=== PATIENT | female | born 1940 ===

== ENCOUNTER 2022-09-04 08:59 | Outpatient (CLI) | payer OTHER ==
[~2022-09-04 08:59] MED LIST: ADVAIR 2501 DISK W/1 IH; AMBIEN10 MG PO; COD LIVER OIL1 EACH PO; COZAAR100 MG PO; FA-80.8 MG PO; GAS RELIEF125 M1 PO; INTEGRA F CAPS1 EACH PO; LOVENOX60 MG/0.6 SQ; LOZOL PO; POTASSIUM CHLO10 MEQ PO; PREVACID30 MG PO; SINGULAIR10 MG PO; SYNTHROID150 MCG PO; VYTORIN 10-40 M1 TAB PO; ZYRTEC10 M3 PO
== END 2022-09-04 09:09 | disposition home or self-care (01) ==
LOC: RAD 08:59
PROVIDERS: ATTEND Psychiatry & Neurology Neurology
DX: M54.12 Radiculopathy, cervical region (principal); R26.89 Other abnormalities of gait and mobility; J98.6 Disorders of diaphragm
CPT/HCPCS: 72141